=== PATIENT | female | born 2000 | race Caucasian/White ===

== ENCOUNTER 2020-11-21 20:05 | Emergency (ER) | payer OTHER ==
[2020-11-21 21:19] VITALS: BP 126/89; PULSE 86; O2SAT 99
--- NOTE | 2020-11-21 22:53 | ERPHSYRPT ---
- History of Present Illness Time Seen by Provider: 11/21/20 21:25 Source: patient Exam Limitations: no limitations Patient Subjective Stated Complaint: I hopped to get to a step coming out of the house, and landed on my ankle wrong. I think I broke it. Triage Nursing Assessment: pt was coming out of her house, hopped to get to a step and landed on her ankle wrong. Rt lateral side of foot is swollen, no bruising noted. Pt states, "it feels numb". Pedal pulse present. Ice pack applied. Physician History: Patient is a 20-year-old female presents to our ED with pain to the anterolateral aspect of her right foot. Patient states she inverted her foot today at approximately 7 PM while descending steps. Patient felt a pop sensation. Patient concern for fracture. No other injuries reported. Pain described as an ache as well localized. No radiation. Pain worse with palpation and movement. Pain improved with rest. Patient otherwise healthy. She voices no other complaints or concerns at this time. Method of Injury: twisted Occurred: this evening Quality: constant (Patient declined pain medication.) Severity of Pain-Max: mild Lower Extremities Pain: foot: right Modifying Factors: Improves With: movement Associated Symptoms: none Allergies/Adverse Reactions: No Known Drug Allergies Allergy (Verified 11/21/20 21:30) Home Medications: Cetirizine HCl [Zyrtec] 10 mg PO DAILY 11/24/15 [History] Omeprazole 40 mg PO DAILY 11/21/20 [History] Hx Tetanus, Diphtheria Vaccination/Date Given: Yes Hx Influenza Vaccination/Date Given: No Hx Pneumococcal Vaccination/Date Given: No Immunizations Up to Date: Yes Travel Risk - International Travel Have you traveled outside of the country in past 3 weeks: No - Coronavirus Screening Are you exhibiting any of the following symptoms?: No Close contact with a COVID-19 positive Pt in past 14-21 Days: No - Vaccine Status Have you recieved a Covid-19 vaccination: No - Review of Systems Constitutional: No Symptoms, No Fever, No Chills Eyes: No Symptoms Ears, Nose, & Throat: No Symptoms Respiratory: No Symptoms, No Cough, No Dyspnea Cardiac: No Symptoms, No Chest Pain, No Edema, No Syncope Abdominal/Gastrointestinal: No Symptoms, No Abdominal Pain, No Nausea, No Vomiting, No Diarrhea Genitourinary Symptoms: No Symptoms, No Dysuria Musculoskeletal: No Symptoms, No Back Pain, No Neck Pain Skin: No Symptoms, No Rash Neurological: No Symptoms, No Dizziness, No Focal Weakness, No Sensory Changes Psychological: No Symptoms Endocrine: No Symptoms Hematologic/Lymphatic: No Symptoms Immunological/Allergic: No Symptoms All Other Systems: Reviewed and Negative - Past Medical History Pertinent Past Medical History: Yes Neurological History: No Pertinent History ENT History: No Pertinent History Cardiac History: No Pertinent History Respiratory History: Bronchitis Endocrine Medical History: No Pertinent History Musculoskeletal History: No Pertinent History GI Medical History: Gallbladder Disease History: No Pertinent History Psycho-Social History: No Pertinent History Female Reproductive Disorders: Other Other Medical History: PCOS - Past Surgical History Past Surgical History: Yes Other Surgical History: WISDOM TEETH - Social History Smoking Status: Never smoker Exposure to second hand smoke: Yes Drug Use: none Patient Lives Alone: No - Female History Hx Last Menstrual Period: 11/17/20 Hx Now: No - Nursing Vital Signs Nursing Vital Signs: Initial Vital Signs Temperature 98.8 F 11/21/20 21:17 Pulse Rate 86 11/21/20 21:17 Respiratory Rate 16 11/21/20 21:17 Blood Pressure 126/89 11/21/20 21:17 O2 Sat by Pulse Oximetry 99 11/21/20 21:17 Pain Scale Pain Intensity 5 - Physical Exam General Appearance: no apparent distress, alert Eyes, Ears, Nose, Throat Exam: moist mucous membranes Neck Exam: non-tender, supple Cardiovascular/Respiratory Exam: chest non-tender, normal breath sounds, regular rate/rhythm, no respiratory distress Gastrointestinal/Abdominal Exam: non-tender, guarding Back Exam: normal inspection, No vertebral tenderness Hips Exam: bilateral: non-tender, normal inspection, normal range of motion, no evidence of injury Legs Exam: bilateral leg: non-tender, normal inspection, normal range of motion, no evidence of injury Knees Exam: bilateral knee: non-tender, normal inspection, normal range of motion, no evidence of injury Ankle Exam: bilateral ankle: non-tender, normal inspection, normal range of motion, no evidence of injury Foot Exam: right foot: pain, soft tissue tenderness, swelling, other (Anterolateral aspect of right foot just distal to the ATFL ligament has a swelling appears to be a hematoma. Possible ligamentous injury. Overlying soft tissue intact.), left foot: non-tender, normal inspection, normal range of motion, no evidence of injury Neuro/Tendon Exam: normal sensation, normal motor functions Mental Status Exam: alert, oriented x 3, cooperative Skin Exam: normal color, warm, dry SpO2 Interpretation: normal SpO2: 99 O2 Delivery: Room Air - Course Nursing assessment & vital signs reviewed: Yes - Radiology Exams Ankle X-ray Interpretation: Interpreted by me (No fracture or dislocation.) Foot X-ray Interpretation: Interpreted by me (There appears to be ligamentous injury of the right lateral foot. There is a swelling and tenderness at this location. Extremities neurovascular intact distally. Compartments are soft. Cap refill less than 2 seconds.) Ordered Tests: Active Orders 24 hr Category Date Time Status ANKLE (2V) Stat Exams 11/21/20 21:43 Taken FOOT (2 VIEWS) Stat Exams 11/21/20 21:42 Taken - Progress Progress: improved Progress Note: Patient declined pain medication. There is a swelling with a vivien of bone at the anterolateral aspect of right foot. Patient placed in bilateral axillary crutches. Patient referred to orthopedic/podiatry clinic tomorrow morning. Patient agrees to follow-up as indicated. She voices no other complaints or concerns at this time. 11/21/20 22:52 11/21/20 22:56 Counseled pt/family regarding: diagnosis, need for follow-up, rad results - Departure Departure Disposition: Home Clinical Impression: Foot sprain, Foot fracture Condition: Stable Critical Care Time: No Referrals: DOCTOR,NO FAMILY [Primary Care Provider] - AILYN CARRILLO [ACTIVE STAFF] - Additional Instructions: Discharge/Care Plan EMRE COLON KATLYN was seen on 11/21/20 in the Emergency Room. The patient was counseled regarding Diagnosis,Lab results, Imaging studies, need for follow up and when to return to the Emergency Room. Prescriptions given: Discharge Note I have spoken with the patient and/or caregivers. I have explained the patient's condition, diagnosis and treatment plan based on the information available to me at this time. I have answered the patient's and/or caregiver's questions and addressed any concerns. The patient and/or caregivers have as good understanding of the patient's diagnosis, condition and treatment plan as can be expected at this point. The vital signs have been stable. The patient's condition is stable and appropriate for discharge from the emergency department. The patient will pursue further outpatient evaluation with the primary care physician or other designated or consulting physician as outlined in the discharge instructions. The patient and/or caregivers are agreeable to this plan of care and follow-up instructions have been explained in detail. The patient and/or caregivers have received these instruction. The patient/and or caregivers are aware that any significant change in condition or worsening of symptoms should prompt an immediate return to this or the closest emergency department or call 911. Outpatient Orders: Ortho Referral Time Frame: 1 Day, Facility: [facility]. Hosp, Location: [facility]
--- NOTE | 2020-11-22 09:10 | XRAY ---
Indication: Pain following fall. Comparison: None 2 view right ankle obtained. No bony, articular, or soft tissue abnormalities.
--- NOTE | 2020-11-22 09:12 | XRAY ---
Indication: Pain following fall. Comparison: None 2 nonweightbearing views right foot demonstrates faint calcifications lateral to cuboid with overlying soft tissue swelling. Avulsion fracture is of primary concern. No other bony, articular, or soft tissue abnormalities.
== END 2020-11-21 23:14 | disposition home or self-care (01) ==
LOC: ED 20:05
DX: S92.211A Displaced fracture of cuboid bone of right foot, initial encounter for closed fracture (principal); M79.671 Pain in right foot; M25.571 Pain in right ankle and joints of right foot; W10.9XXA Fall (on) (from) unspecified stairs and steps, initial encounter; X50.0XXA Overexertion from strenuous movement or load, initial encounter
CPT/HCPCS: 73600; 73620; 99283